=== PATIENT | male | born 1995 | race Caucasian/White ===

== ENCOUNTER 2019-07-26 15:48 | Emergency (ER) | payer BC ==
[~2019-07-26] VITALS: Ht 172.7 cm; Wt 70.3 kg
[2019-07-26 16:09] LABS: ABSOLUTE BASOPHILS 0.1 thou/uL (0.0-0.2); ABSOLUTE EOSINOPHILS 0.2 thou/uL (0.0-0.7); ABSOLUTE LYMPHOCYTES 2.5 thou/uL (0.8-5.3); ABSOLUTE MONOCYTES 0.7 thou/uL (0.0-1.2); ABSOLUTE NEUTROPHILS 3.5 thou/uL (1.6-8.1); BASOPHILS 0.8 %; EOSINOPHILS 2.7 %; HEMATOCRIT 46.6 % (42.0-52.0); HEMOGLOBIN 16.5 gm/dL (14.0-18.0); LYMPHOCYTES 36.3 %; MCH 33.3 pg (26.0-34.0); MCHC 35.4 g/dL (28.0-37.0); MONOCYTES 10.6 %; MPV 8.3 fl. (7.2-11.1); NUCLEATED RBCS 0 /100WBC; PLATELET COUNT* 281 thou/uL (150-400); POLYS 49.6 %; RBC 4.96 mil/uL (4.50-6.00); RDW-CV 12.3 % (10.5-14.5)
[2019-07-26 16:12] LABS: CALCIUM 9.3 mg/dL (8.5-10.1); CREATININE 1.1 mg/dL (0.6-1.3); POTASSIUM 3.4 mmol/L (3.5-5.1)
[2019-07-26 16:17] LABS: ALBUMIN 4.8 g/dL (3.4-5.0); TOTAL BILIRUBIN 0.8 mg/dL (<0.1-1.0); TOTAL PROTEIN 7.9 g/dL (6.4-8.2)
[2019-07-26 17:08] VITALS: BP 121/70
--- NOTE | 2019-07-28 11:27 | EKG ---
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
== END 2019-07-26 17:08 | disposition home or self-care (01) ==
LOC: M.ERS 15:48
PROVIDERS: Nurse Practitioner Family
DX: R07.89 Other chest pain (principal); F17.210 Nicotine dependence, cigarettes, uncomplicated

== ENCOUNTER 2020-01-08 05:25 | Emergency (ER) | payer BC ==
[~2020-01-08] VITALS: Ht 175.3 cm; Wt 70.3 kg
[2020-01-08 06:13] LABS: URINE BILIRUBIN NEGATIVE (Negative); URINE BLOOD NEGATIVE (Negative); URINE CLARITY CLEAR; URINE COLOR YELLOW; URINE GLUCOSE-RANDOM NEGATIVE (Negative); URINE KETONES NEGATIVE (Negative); URINE LEUKOCYTES-REFLEX NEGATIVE (Negative); URINE NITRITE-REFLEX NEGATIVE (Negative); URINE PROTEIN NEGATIVE (Negative); URINE SPECIFIC GRAVITY 1.025 (1.005-1.030); URINE UROBILINOGEN 0.2 E.U./dl (0.2-1.0)
[2020-01-08 06:15] LABS: ABSOLUTE EOSINOPHILS 0.2 thou/uL (0.0-0.7); ABSOLUTE LYMPHOCYTES 2.2 thou/uL (0.8-5.3); ABSOLUTE MONOCYTES 0.6 thou/uL (0.0-1.2); BASOPHILS 0.5 %; EOSINOPHILS 3.2 %; HEMATOCRIT 47.4 % (42.0-52.0); HEMOGLOBIN 16.9 gm/dL (14.0-18.0); LYMPHOCYTES 31.1 %; MCH 33.5 pg (26.0-34.0); MCHC 35.7 g/dL (28.0-37.0); MCV 93.9 fL (80.0-100.0); MONOCYTES 8.7 %; MPV 8.3 fl. (7.2-11.1); NUCLEATED RBCS 0 /100WBC; PLATELET COUNT* 254 thou/uL (150-400); POLYS 56.5 %; RBC 5.05 mil/uL (4.50-6.00); WBC 7.1 thou/uL (4.0-11.0)
[2020-01-08 06:20] LABS: AMP/METHAMP Negative (Negative); BARBITURATES Negative (Negative); BENZODIAZEPINES Negative (Negative); COCAINE Negative (Negative); METHADONE Negative (Negative); OPIATES Negative (Negative); PCP Negative (Negative); THC POSITIVE (Negative)
[2020-01-08 06:23] LABS: CREATININE 1.2 mg/dL (0.6-1.3); POTASSIUM 3.7 mmol/L (3.5-5.1)
[2020-01-08 06:33] LABS: ALBUMIN 4.8 g/dL (3.4-5.0); TOTAL BILIRUBIN 0.7 mg/dL (<0.1-1.0); TOTAL PROTEIN 7.7 g/dL (6.4-8.2)
[2020-01-08] MEDS ORDERED: BENTYL 20 MG TA20 M1 PO (08:34)
[2020-01-08 08:53] VITALS: BP 138/110
--- NOTE | 2020-01-08 14:23 | EKG ---
[place] [address] ELECTROCARDIOGRAM REPORT Name: CRISTOPHER GILES Room: 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1995 Requested By: Jose Sandy Order Number: [id number] MD: Roni Deluna Measurements Intervals [place] Rate: 89 P: 77 RI: 138 QRS: 17 QRSD: 90 T: 16 QT: 360 QTc: 439 Interpretive Statements Sinus rhythm Minimal ST depression, inferior leads Compared to ECG 07/26/2019 15:54:29 No significant changes Electronically Signed On 01-08-2020 14:21:15 CDT by Roni Deluna [email or web address] <ELECTRONICALLY SIGNED> By: Roni Deluna MD, [facility] 01/08/20 1421 0532 0532 Roni Deluna MD, [facility] /EPI
--- NOTE | 2020-01-08 14:31 | EKG ---
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 01/08/20 1429 08 08 Roni Deluna MD, FACC /EPI
== END 2020-01-08 08:54 | disposition home or self-care (01) ==
LOC: M.ERS 05:25
PROVIDERS: Personal Emergency Response Attendant
DX: R07.89 Other chest pain (principal); R10.32 Left lower quadrant pain

== ENCOUNTER 2021-09-03 00:32 | Emergency (ER) | payer OTHER ==
[~2021-09-03] VITALS: Ht 172.7 cm; Wt 72.6 kg
[~2021-09-03 00:32] MED LIST: BENTYL 20 MG TA20 M1 PO
[2021-09-03 00:54] LABS: ABSOLUTE EOSINOPHILS 0.2 thou/uL (0.0-0.7); ABSOLUTE LYMPHOCYTES 2.2 thou/uL (0.8-5.3); ABSOLUTE MONOCYTES 0.7 thou/uL (0.0-1.2); ABSOLUTE NEUTROPHILS 5.6 thou/uL (1.6-8.1); BASOPHILS 0.5 %; EOSINOPHILS 2.8 %; HEMOGLOBIN 16.9 gm/dL (14.0-18.0); MCH 33.2 pg (26.0-34.0); MCHC 35.1 g/dL (28.0-37.0); MCV 94.6 fL (80.0-100.0); MONOCYTES 8.4 %; MPV 7.3 fl. (7.2-11.1); NUCLEATED RBCS 0 /100WBC; PLATELET COUNT* 296 thou/uL (150-400); POLYS 63.3 %; RBC 5.08 mil/uL (4.50-6.00); RDW-CV 12.3 % (10.5-14.5); WBC 8.9 thou/uL (4.0-11.0)
[2021-09-03 01:06] LABS: CALCIUM 8.7 mg/dL (8.5-10.1); CREATININE 1.4 mg/dL (0.6-1.3)
[2021-09-03 01:09] LABS: POTASSIUM 2.9 mmol/L (3.5-5.1)
[2021-09-03 01:10] LABS: ALBUMIN 4.3 g/dL (3.4-5.0); APTT 25.3 Seconds (25.0-31.3); INR 1.1; PROTIME 10.8 Seconds (9.20-11.50); TOTAL BILIRUBIN 0.6 mg/dL (<0.1-1.0); TOTAL PROTEIN 7.2 g/dL (6.4-8.2)
[2021-09-03 02:21] LABS: URINE BILIRUBIN NEGATIVE (Negative); URINE BLOOD NEGATIVE (Negative); URINE CLARITY CLEAR; URINE COLOR YELLOW; URINE GLUCOSE-RANDOM NEGATIVE (Negative); URINE KETONES NEGATIVE (Negative); URINE LEUKOCYTES-REFLEX NEGATIVE (Negative); URINE NITRITE-REFLEX NEGATIVE (Negative); URINE PROTEIN NEGATIVE (Negative); URINE UROBILINOGEN 0.2 E.U./dl (0.2-1.0)
[2021-09-03 02:29] LABS: AMP/METHAMP Negative (Negative); BARBITURATES Negative (Negative); BENZODIAZEPINES Negative (Negative); COCAINE Negative (Negative); METHADONE Negative (Negative); OPIATES Negative (Negative); PCP Negative (Negative); THC POSITIVE (Negative)
[2021-09-03 03:59] VITALS: BP 118/63
--- NOTE | 2021-09-03 12:15 | EKG ---
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1995 Requested By: Arabella Chacon Order Number: [id number] MD: Pardeep Galavn Measurements Intervals [place] Rate: 143 P: 75 AR: 82 QRS: -27 QRSD: 91 T: 47 QT: 403 QTc: 622 Interpretive Statements Sinus tachycardia RSR' in V1 or V2, probably normal variant Prolonged QT interval Compared to ECG 01/08/2020 08:17:38 RSR' in V1 or V2 now present Prolonged QT interval now present Sinus arrhythmia no longer present Electronically Signed On 09-03-2021 12:15:20 CATTLE FEEDER by Pardeep Galvan [email or web address] <ELECTRONICALLY SIGNED> By: Pardeep Galvan MD, FACC 09/03/21 1215 004 Pardeep Galvan MD, FAC /EPI
== END 2021-09-03 03:59 | disposition home or self-care (01) ==
LOC: M.ERS 00:32
PROVIDERS: Personal Emergency Response Attendant
DX: I49.9 Cardiac arrhythmia, unspecified (principal); F41.9 Anxiety disorder, unspecified; R42 Dizziness and giddiness; R20.2 Paresthesia of skin; Z98.890 Other specified postprocedural states